=== PATIENT | female | born 1980 ===

== ENCOUNTER 2021-11-01 09:23 | Outpatient (CLI) | payer OTHER | END 2021-11-01 09:35 | disposition home or self-care (01) | LOC: MAMO-SONO 09:23 | PROVIDERS: ATTEND Obstetrics & Gynecology Maternal & Fetal Medicine | DX: Z12.31 Encounter for screening mammogram for malignant neoplasm of breast (principal); N63.0 Unspecified lump in unspecified breast; N64.4 Mastodynia; N60.11 Diffuse cystic mastopathy of right breast ==